=== PATIENT | female | born 1980 | race Caucasian/White ===

== ENCOUNTER 2016-09-27 12:40 | Day surgery (SDC) | payer OTHER ==
[~2016-09-27] VITALS: Ht 170.2 cm; Wt 83.9 kg
[~2016-09-27 12:40] MED LIST: TYLENOL EXTRA500 MG PO
[2016-09-27 13:13] VITALS: BP 118/69
[2016-09-27 14:31] LABS: METH RESISTANT S AUREUS PCR ND (NEGATIVE)
[2016-09-27 16:03] LABS: METH RESISTANT S AUREUS PCR NEGATIVE (NEGATIVE)
[2016-09-27 16:25] LABS: PROBE CHECK PASS; SPECIMEN PROCESSING CONTROL PASS
[2016-09-27 17:41] VITALS: BP 131/82
[2016-09-27 18:15] VITALS: BP 131/74
== END 2016-09-27 18:15 | disposition home or self-care (01) ==
LOC: SDC 12:40
PROVIDERS: Obstetrics & Gynecology Gynecologic Oncology; Surgery
PROC: 0UT Female Reproductive System, Resection (ICD-10-PCS; principal; 2016-09-27)
DX: N75.8 Other diseases of Bartholin's gland (principal); F17.200 Nicotine dependence, unspecified, uncomplicated
CPT/HCPCS: 87641; 88305; J0131; J0690; J1100; J1170; J1885; J2250; J2405; J3010